=== PATIENT | male | born 1950 | race Caucasian/White ===

== ENCOUNTER 2018-04-12 21:46 | Emergency (ER) | payer MEDICARE, BC ==
[~2018-04-12] VITALS: Ht 182.9 cm; Wt 88.6 kg
[2018-04-12 22:20] LABS: BASOPHILS % (AUTO) 0.6 % (0-1); EOSINOPHILS # (AUTO) 0.1 X10'3 (0-0.9); EOSINOPHILS % (AUTO) 1.3 % (0-6); HEMATOCRIT 39.5 % (42.0-52.0); HEMOGLOBIN 13.4 g/dl (14.0-17.9); LYMPHOCYTES # (AUTO) 0.9 X10'3 (1.1-4.8); LYMPHOCYTES % (AUTO) 10.4 % (21-51); MEAN CORPUSCULAR HEMOGLOBIN 30.3 PG (27.0-31.0); MEAN CORPUSCULAR HGB CONC 33.9 % (33.0-36.5); MEAN CORPUSCULAR VOLUME 89.4 FL (78-98); MEAN PLATELET VOLUME 6.4 FL (7.4-10.4); MONOCYTES # (AUTO) 0.7 X10'3 (0-0.9); NEUTROPHILS % (AUTO) 79.7 % (42-75); PLATELET COUNT 281 X10'3 (140-440); RED BLOOD COUNT 4.42 X10'6 (4.70-6.10); RED CELL DISTRIBUTION WIDTH 13.5 % (11.5-14.5); WHITE BLOOD COUNT 8.8 X10'3 (4.5-11.0)
[2018-04-12] MEDS ORDERED: morphine 4 MG/ML inj SYRINge IV ONE (22:25)
[2018-04-12] MEDS ORDERED: normal saline 1000ml 1,000 ML IV ONE ×2 (22:25→23:05)
[2018-04-12] MEDS ORDERED: ondansetron/PF 4mg/2ml inj IV ONE (22:25)
[2018-04-12 22:37] LABS: ALANINE AMINOTRANSFERASE 48 U/L (12-78); ALBUMIN 3.6 G/DL (3.4-5.0); ALBUMIN/GLOBULIN RATIO 0.8 (1.1-1.5); ALKALINE PHOSPHATASE 101 IU/L (46-116); ANION GAP 12 (8-16); ASPARTATE AMINO TRANSFERASE 24 U/L (10-37); BILIRUBIN,TOTAL 0.8 MG/DL (0.1-1.0); BLOOD UREA NITROGEN 13 MG/DL (7-18); BUN/CREATININE RATIO 12.5 (5.4-32.0); CALCIUM 9.3 MG/DL (8.5-10.1); CHLORIDE 98 MMOL/L (99-107); CREATININE 1.04 MG/DL (0.60-1.10); GLUCOSE 188 MG/DL (70-104); POTASSIUM 3.6 MMOL/L (3.5-5.1); SODIUM 138 MMOL/L (135-145); TOTAL PROTEIN 7.9 G/DL (6.4-8.2); eGFR 72 ML/MIN
[2018-04-12 22:40] LABS: PARTIAL THROMBOPLASTIN TIME 28 SECONDS (22-32); PROTHROMBIN TIME 10.8 SECONDS (9.0-12.0)
[2018-04-12] MEDS ORDERED: methylnaltrexone br 12mg/0.6ml inj***SubQ only SQ ONE (22:45)
[2018-04-12] MEDS ORDERED: iohexol 300mg/ml 100ml inj. ONE (22:48)
[2018-04-12 23:31] LABS: COLOR,URINE YELLOW (Yellow); GLUCOSE, URINE 250 mg/dl (Neg); KETONES,URINE NEGATIVE (Neg); LEUKOCYTE ESTERASE ,URINE TRACE (Neg); NITRITES, URINE NEGATIVE (Neg); OCCULT BLOOD,URINE LARGE (Neg); PH,URINE 7.5 (4.8-8.0); PROTEIN,URINE NEGATIVE (Neg); UROBILINOGEN,URINE 0.2 E.U/dL (0.2-1.0)
[2018-04-12 23:33] LABS: CLARITY,URINE SLIGHTLY CLOUDY (Clear); UA COLLECTION TYPE FOLEY CATH
[2018-04-12 23:42] LABS: BACTERIA,URINE 3+ /HPF (Neg); MUCUS STRANDS NONE SEEN /LPF (Neg); RBC,URINE 20-50 /HPF (0-2); SQUAMOUS EPITHELIAL CELL,UR NONE SEEN /LPF (FEW); WBC,URINE NONE SEEN /HPF (0-4)
[2018-04-13] MEDS ORDERED: ondansetron/PF 4mg/2ml inj IV ONE (00:30)
[2018-04-13] MEDS ORDERED: METH150T PO (01:55)
[2018-04-13 02:11] VITALS: BP 148/88
== END 2018-04-13 02:23 | disposition home or self-care (01) ==
LOC: ER 21:46
DX: K59.03 Drug induced constipation (principal); T40.695A Adverse effect of other narcotics, initial encounter; R10.31 Right lower quadrant pain; R14.0 Abdominal distension (gaseous); Z90.89 Acquired absence of other organs; Y92.89 Other specified places as the place of occurrence of the external cause
CPT/HCPCS: 36415; 74018; 74177; 80053; 81001; 83605; 84145; 85025; 85610; 85730; 87040; 87077; 87088; 87186; 96372; 96374; 96375; 99285; J2270; J2405; Q9967; 96361

== ENCOUNTER 2018-04-17 00:46 | Emergency (ER) | payer MEDICARE, BC ==
[~2018-04-17] VITALS: Ht 182.9 cm; Wt 88.6 kg
[~2018-04-17 00:46] MED LIST: METH150T PO
[2018-04-17] MEDS ORDERED: lactulose 20gm/30ml cup PO ONE (00:55)
[2018-04-17] MEDS ORDERED: normal saline 1000ML IV soln IVB ONE (00:55)
[2018-04-17] MEDS ORDERED: magnesium hydroxide 30ml (MOM) UD suspension PO ONE (00:55)
[2018-04-17] MEDS ORDERED: bisacodyl 5mg tablet.DR PO ONE (00:55)
[2018-04-17] MEDS ORDERED: potassium Cl 20 mEq SR tablet PO STA (00:57)
[2018-04-17] MEDS ORDERED: methylnaltrexone br 12mg/0.6ml inj***SubQ only SQ ONE (01:05)
[2018-04-17] MEDS ORDERED: LORazepam 2 mg/ml vial IV ONE (01:05)
[2018-04-17 01:34] LABS: BASOPHILS # (AUTO) 0.1 X10'3 (0-0.2); BASOPHILS % (AUTO) 0.7 % (0-1); EOSINOPHILS # (AUTO) 0.2 X10'3 (0-0.9); EOSINOPHILS % (AUTO) 2.1 % (0-6); HEMATOCRIT 35.7 % (42.0-52.0); HEMOGLOBIN 12.4 g/dl (14.0-17.9); LYMPHOCYTES % (AUTO) 14.2 % (21-51); MEAN CORPUSCULAR HEMOGLOBIN 30.6 PG (27.0-31.0); MEAN CORPUSCULAR HGB CONC 34.5 % (33.0-36.5); MEAN CORPUSCULAR VOLUME 88.5 FL (78-98); MEAN PLATELET VOLUME 6.4 FL (7.4-10.4); MONOCYTES # (AUTO) 0.5 X10'3 (0-0.9); NEUTROPHILS # (AUTO) 5.5 X10'3 (1.8-7.7); PLATELET COUNT 349 X10'3 (140-440); RED BLOOD COUNT 4.04 X10'6 (4.70-6.10); RED CELL DISTRIBUTION WIDTH 12.5 % (11.5-14.5); WHITE BLOOD COUNT 7.3 X10'3 (4.5-11.0)
[2018-04-17 01:52] LABS: ALANINE AMINOTRANSFERASE 54 U/L (12-78); ALBUMIN 3.5 G/DL (3.4-5.0); ALBUMIN/GLOBULIN RATIO 0.9 (1.1-1.5); ALKALINE PHOSPHATASE 93 IU/L (46-116); ANION GAP 13 (8-16); ASPARTATE AMINO TRANSFERASE 22 U/L (10-37); BILIRUBIN,TOTAL 0.8 MG/DL (0.1-1.0); BLOOD UREA NITROGEN 17 MG/DL (7-18); CALCIUM 8.7 MG/DL (8.5-10.1); CHLORIDE 98 MMOL/L (99-107); GLUCOSE 115 MG/DL (70-104); POTASSIUM 3.7 MMOL/L (3.5-5.1); SODIUM 135 MMOL/L (135-145); TOTAL CARBON DIOXIDE 24.4 MMOL/L (24-32); TOTAL PROTEIN 7.5 G/DL (6.4-8.2); eGFR 75 ML/MIN
[2018-04-17 02:03] LABS: CLARITY,URINE SLIGHTLY CLOUDY (Clear); COLOR,URINE RED (Yellow)
[2018-04-17 02:22] LABS: UA COLLECTION TYPE FOLEY CATH
[2018-04-17 02:25] LABS: RBC,URINE 20-50 /HPF (0-2); SQUAMOUS EPITHELIAL CELL,UR FEW /LPF (FEW); WBC,URINE 0-4 /HPF (0-4)
[2018-04-17 02:34] LABS: BACTERIA,URINE 1+ /HPF (Neg)
[2018-04-17 03:46] VITALS: BP 139/83
[2018-04-17] MEDS ORDERED: POLY255P2 PO (04:17)
== END 2018-04-17 04:57 | disposition home or self-care (01) ==
LOC: ER 00:47
DX: K59.00 Constipation, unspecified (principal); G89.29 Other chronic pain; Z79.899 Other long term (current) drug therapy
CPT/HCPCS: 36415; 80053; 81001; 83605; 85025; 96372; 96374; 99284; J2060

== ENCOUNTER 2020-01-13 05:28 | Day surgery (SDC) | payer MEDICARE, BC ==
[2020-01-06 12:14] LABS: COLOR,URINE YELLOW (Yellow); GLUCOSE, URINE NEGATIVE (Neg); KETONES,URINE 15 mg/dl (Neg); LEUKOCYTE ESTERASE ,URINE NEGATIVE (Neg); NITRITES, URINE NEGATIVE (Neg); OCCULT BLOOD,URINE NEGATIVE (Neg); PH,URINE 5.5 (4.8-8.0); PROTEIN,URINE NEGATIVE (Neg); UROBILINOGEN,URINE 0.2 E.U/dL (0.2-1.0)
[2020-01-06 12:17] LABS: BASOPHILS % (AUTO) 0.6 % (0-1); EOSINOPHILS # (AUTO) 0.2 X10'3 (0-0.9); EOSINOPHILS % (AUTO) 4.9 % (0-6); LYMPHOCYTES # (AUTO) 0.4 X10'3 (1.1-4.8); LYMPHOCYTES % (AUTO) 11.8 % (21-51); MEAN CORPUSCULAR HEMOGLOBIN 31.5 PG (27.0-31.0); MEAN CORPUSCULAR HGB CONC 34.7 g/dL (33.0-36.5); MEAN CORPUSCULAR VOLUME 90.9 FL (78-98); MEAN PLATELET VOLUME 6.7 FL (7.4-10.4); MONOCYTES # (AUTO) 0.5 X10'3 (0-0.9); NEUTROPHILS # (AUTO) 2.7 X10'3 (1.8-7.7); NEUTROPHILS % (AUTO) 70.7 % (42-75); PRE OP HEMATOCRIT 37.8 % (42.0-52.0); PRE OP HEMOGLOBIN 13.1 g/dL (14.0-17.9); PRE OP PLATELET COUNT 180 X10'3 (140-440); RED BLOOD COUNT 4.16 X10'6 (4.70-6.10); RED CELL DISTRIBUTION WIDTH 12.6 % (11.5-14.5)
[2020-01-06 12:26] LABS: CLARITY,URINE SLIGHTLY CLOUDY (Clear); UA COLLECTION TYPE CLN CATCH MIDSTREAM
[2020-01-06 12:27] LABS: BACTERIA,URINE NONE SEEN /HPF (Neg); CAL OXALATE CRYSTALS FEW /HPF (NEGATIVE); MUCUS STRANDS MANY /LPF (Neg); RBC,URINE NONE SEEN /HPF (0-2); SQUAMOUS EPITHELIAL CELL,UR NONE SEEN /LPF (FEW); WBC,URINE 0-4 /HPF (0-4)
[2020-01-06 12:33] LABS: ALBUMIN/GLOBULIN RATIO 1.1 (1.1-1.5); ALKALINE PHOSPHATASE 189 IU/L (46-116); BLOOD UREA NITROGEN 19 MG/DL (7-18); BUN/CREATININE RATIO 16.8 (5.4-32.0); CALCIUM 9.8 MG/DL (8.5-10.1); CHLORIDE 106 MMOL/L (99-107); CREATININE 1.13 MG/DL (0.60-1.10); PRE OP ANION GAP 3 (8-16); PRE OP AST 83 U/L (10-37); PRE OP BILIRUB, TOTAL 0.4 MG/DL (0.0-1.0); PRE OP GLUCOSE 92 MG/DL (70-104); PRE OP POTASSIUM 4.2 MMOL/L (3.4-5.1); PRE OP SODIUM 141 MMOL/L (135-145); TOTAL CARBON DIOXIDE 31.7 MMOL/L (24-32); TOTAL PROTEIN 7.6 G/DL (6.4-8.2); eGFR 65 ML/MIN
[2020-01-06 12:36] LABS: PRE OP ALT 205 U/L (30-65)
[~2020-01-13] VITALS: Ht 182.9 cm; Wt 81.0 kg
[2020-01-13] VITALS (10 sets, daily range): BP systolic 123–191; BP diastolic 65–111
[~2020-01-13 05:28] MED LIST changes: +ALPR1TAB7 PO; +BACL20TA2 PO; +BICA50TA7 PO; +CELE-193 PO; +GLUCOSAMINE; +LEUP45SY; -METH150T PO; +MULTIVITAMIN; +NORT10CA81 PO; +OXYB10TA30 PO; +TRAZ-256 PO; +VENL37.589 PO; +VITAMIN D3; +ringers solution, lacted 1,000 ML IV SCH
[2020-01-13] MEDS ORDERED: famotidine 20mg tablet PO ONE (05:30)
[2020-01-13] MEDS ORDERED: cefazolin/dext.iso 2gm/50ml 50 ML IV ONE (05:30)
[2020-01-13] MEDS ORDERED: BUPIVAcaine/PF 2.5mg/ml (0.25%) 10ml vial ONE (06:35)
[2020-01-13] MEDS ORDERED: midazolam 2 mg/2 ml injection ONE (07:18)
[2020-01-13] MEDS ORDERED: fentaNYL/PF 50MCG/1 ML 2ML syringe ONE (07:18)
[2020-01-13] MEDS ORDERED: propofol inj 20 ML IV ONE (07:20)
[2020-01-13] MEDS ORDERED: LIDOcaine 2% (20mg/ml) 5ml vial ONE (07:20)
[2020-01-13] MEDS ORDERED: rocuronium 10mg/ml inj IV ONE (07:20)
[2020-01-13] MEDS ORDERED: sevoflurane 250ml liquid IH ONE (07:55)
[2020-01-13] MEDS ORDERED: dexamethasone sod phosphate 4mg/ml inj. ONE (08:31)
[2020-01-13] MEDS ORDERED: neostigmine methylsulfate 1 MG/ML 10ml vial ONE (08:31)
[2020-01-13] MEDS ORDERED: ondansetron/PF 4mg/2ml inj ONE (08:31)
[2020-01-13] MEDS ORDERED: glycopyrrolate 0.2mg/ml inj ONE (08:31)
--- NOTE | 2020-01-13 08:55 | NUR ---
Received from OR via BED, accompanied by Anesthesiologist DR CONTE-- and report given by Anesthesiolgist. PATIENT A&OX4, DENIES PAIN, V/S WNL, NEUROVASCULAR CHECKS INTACT, 20G PIV LUE, SCD ON, POSTERIOR HEAD DRESSING CDI
[2020-01-13] MEDS ORDERED: labetalol 20mg/4ml (5mg/ml) syringe IV ONE ×2 (09:00→09:02)
[2020-01-13] MEDS ORDERED: ringers solution, lacted 1,000 ML IV SCH (09:01)
[2020-01-13] MEDS ORDERED: meperidine/PF 25mg/ml syringe IV PRN ×3 (09:05)
[2020-01-13] MEDS ORDERED: proCHLORperazine 10 MG/2 ml inj IV PRN (09:05)
[2020-01-13] MEDS ORDERED: morphine 4 MG/ML inj SYRINge IV PRN (09:05)
[2020-01-13] MEDS ORDERED: morphine 2 MG/ML inj. syringe IV PRN (09:05)
[2020-01-13] MEDS ORDERED: ondansetron/PF 4mg/2ml inj IV PRN (09:05)
--- NOTE | 2020-01-13 10:55 | NUR ---
PATIENT A&OX4, DENIES PAIN, V/S WNL, NEUROVASCULAR CHECKS INTACT, 20G PIV LUE D/C, SCD OFF, POSTERIOR HEAD DRESSING CDI. I HAVE REVIEWED D/C INSTRUCTIONS WITH PATIENT AND FAMILY AND THEY HAVE VERBALIZED UNDERSTANDING. PATIENT D/C HOME WITH ALL BELONGINGS AND FAMILY GAVE TRANSPORT HOME.
== END 2020-01-13 10:55 | disposition home or self-care (01) ==
LOC: PAS 05:28
PROVIDERS: ATTEND Surgery
DX: C44.41 Basal cell carcinoma of skin of scalp and neck (principal); G47.33 Obstructive sleep apnea (adult) (pediatric); F41.9 Anxiety disorder, unspecified; M19.90 Unspecified osteoarthritis, unspecified site; K21.9 Gastro-esophageal reflux disease without esophagitis; Z85.028 Personal history of other malignant neoplasm of stomach; Z79.899 Other long term (current) drug therapy; Z11.59 Encounter for screening for other viral diseases; Z90.79 Acquired absence of other genital organ(s); Z98.890 Other specified postprocedural states; Z85.820 Personal history of malignant melanoma of skin; Z87.442 Personal history of urinary calculi; Z85.46 Personal history of malignant neoplasm of prostate
CPT/HCPCS: 11624; 12032; 36415; 80053; 81001; 82948; 85025; 93005; J1100; J2001; J2250; J2405; J2704; J2710; J3010; J3490; J7120; U0003; A4618; A7000

== ENCOUNTER 2023-03-10 04:58 | Emergency (ER) | payer MEDICARE, BC ==
[~2023-03-10] VITALS: Ht 182.9 cm; Wt 84.5 kg
[~2023-03-10 04:58] MED LIST changes: +ACET-1025 PO; -BACL20TA2 PO; -BICA50TA7 PO; +DONE10TA44 PO; +EPIN0.3A3; +GABA600T13 PO; -GLUCOSAMINE; +LATA2.5D14 OP; -LEUP45SY; -MULTIVITAMIN; -NORT10CA81 PO; +PANCRELIPASE PO; +PANT40TA54 PO; +TIMO5DRO44 OP; -VITAMIN D3; +VITAMIN D3 PO; -ringers solution, lacted 1,000 ML IV SCH
[2023-03-10 06:36] LABS: BILIRUBIN,URINE NEGATIVE (Neg); CLARITY,URINE CLEAR (Clear); COLOR,URINE YELLOW (Yellow); GLUCOSE, URINE NEGATIVE (Neg); KETONES,URINE NEGATIVE (Neg); LEUKOCYTE ESTERASE ,URINE NEGATIVE (Neg); NITRITES, URINE NEGATIVE (Neg); OCCULT BLOOD,URINE NEGATIVE (Neg); PH,URINE 5.5 (4.8-8.0); PROTEIN,URINE NEGATIVE (Neg); UROBILINOGEN,URINE 0.2 E.U/dL (0.2-1.0)
[2023-03-10 06:37] LABS: UA COLLECTION TYPE CLN CATCH MIDSTREAM
[2023-03-10 06:49] LABS: ALANINE AMINOTRANSFERASE 23 U/L (12-78); ALBUMIN 4.4 G/DL (3.4-5.0); ALBUMIN/GLOBULIN RATIO 1.2 (1.1-1.5); ALKALINE PHOSPHATASE 98 IU/L (46-116); AMYLASE 63 U/L (25-115); ANION GAP 10 (8-16); ASPARTATE AMINO TRANSFERASE 18 U/L (10-37); BILIRUBIN,TOTAL 0.5 MG/DL (0.1-1.0); BLOOD UREA NITROGEN 22 MG/DL (7-18); BUN/CREATININE RATIO 14.9 (10.0-20.0); CALCIUM 9.7 MG/DL (8.5-10.1); CHLORIDE 101 MMOL/L (99-107); CREATININE 1.48 MG/DL (0.60-1.10); GLUCOSE 150 MG/DL (70-104); LIPASE 57 U/L (73-393); POTASSIUM 4.2 MMOL/L (3.5-5.1); SODIUM 139 MMOL/L (135-145); TOTAL CARBON DIOXIDE 27.7 MMOL/L (24-32); TOTAL PROTEIN 8.2 G/DL (6.4-8.2); eCRCL 51 ML/MIN; eGFR 47 ML/MIN
[2023-03-10] MEDS ORDERED: ringers solution, lacted 1,000 ML IV ONE (07:45)
[2023-03-10] MEDS ORDERED: iohexol 300mg/ml 100ml inj. ONE (07:55)
[2023-03-10 10:27] VITALS: BP 119/69; PULSE 80; RESP 18; TEMP 97.8; O2SAT 98
== END 2023-03-10 11:06 | disposition left against medical advice (07) ==
LOC: ER 04:58
DX: R10.13 Epigastric pain (principal); R11.0 Nausea; R53.1 Weakness; Z79.899 Other long term (current) drug therapy; Z87.19 Personal history of other diseases of the digestive system
CPT/HCPCS: 74177; 80053; 81003; 82150; 83690; 96360; 99285; J3490; J7120; Q9967